=== PATIENT | female | born 1985 | race Caucasian/White ===

== ENCOUNTER 2020-07-31 08:57 | Emergency (ER) | payer OTHER ==
[~2020-07-31] VITALS: Ht 162.6 cm; Wt 80.7 kg
[2020-07-31] MEDS ORDERED: VALACYCLOVIR HCL 500 MG TABLET PO ONE (09:30)
[2020-07-31] MEDS ORDERED: VALACYCLOVIR HCL 500 MG TABLET ONE (09:33)
[2020-07-31 09:56] LABS: *URINE HCG, QUAL NEG (NEGATIVE)
--- NOTE | 2020-07-31 10:16 | NUR ---
Patient discharged to home in stable condition. Written and verbal after care instructions given. Patient verbalizes understanding of instructions. Stressed follow up or return to ER for worsening s/s.
== END 2020-07-31 10:17 | disposition home or self-care (01) ==
LOC: ER 08:57
DX: A60.04 Herpesviral vulvovaginitis (principal)
CPT/HCPCS: 84703; 86592; A4663